=== PATIENT | female | born 1970 | race Caucasian/White ===

== ENCOUNTER 2024-07-17 09:47 | Emergency (ER) | payer OTHER, SELFPAY ==
[2024-07-17 10:00] VITALS: BP 122/85; PULSE 96; RESP 20; TEMP 36.5; O2SAT 99
--- NOTE | 2024-07-17 10:07 | ED_ITS ---
HPI - Dental/Oral General Chief complaint: Dental/Oral Stated complaint: right side of face swollen/hurts Time Seen by Provider: 07/17/24 09:52 Source: patient Mode of arrival: ambulatory Limitations: no limitations History of Present Illness HPI Narrative: Birdie is a 54-year-old female patient presenting to the clinic today with complaints of right lower jaw swelling since last night. She woke up this morning and it was more swollen and painful. Denies any fevers, chills, or body aches. Allergies to penicillin and erythromycin. Denies any chest pain or shortness of breath. Related Data Home Medications ?Medication ?Instructions ?Recorded ?Confirmed ?Last Taken ?Type benztropine 1 mg tablet mg 07/17/24 Unknown History benztropine 2 mg tablet mg 07/17/24 Unknown History gabapentin 600 mg tablet mg 07/17/24 Unknown History hydroxyzine HCl 50 mg tablet mg 07/17/24 Unknown History mirtazapine 45 mg tablet mg 07/17/24 Unknown History paliperidone palmitate 234 mg/1.5 mg IM 07/17/24 Unknown History mL intramuscular syringe (Invega Sustenna) prazosin 5 mg capsule mg 07/17/24 Unknown History quetiapine 300 mg tablet mg 07/17/24 Unknown History ropinirole 3 mg tablet mg 07/17/24 Unknown History sertraline 100 mg tablet mg 07/17/24 Unknown History Allergies Allergy/AdvReac Type Severity Reaction Status Date / Time erythromycin base Allergy Intermediate hives Verified 07/17/24 10:06 Penicillins Allergy Intermediate rash Verified 07/17/24 10:06 Review of Systems Review of Systems: Pertinent positives per HPI. Patient denies any fever, chills, rash, headache, visual changes, dizziness, cough, shortness of breath, chest pain, palpitations, nausea, vomiting, diarrhea, constipation, abdominal pain, or any urinary issues. PMFSH Comments At the time of my signature, I reviewed and agree with the nursing past medical, surgical, social, and family history. There is no relevant family history pertinent to the patient complaint. Exam Narrative: General: Well-developed, well nourished, in no apparent distress Head: Normocephalic, atraumatic Eyes: Pupils equally round and reactive to light bilaterally, EOM intact, sclera and conjunctive clear, no discharge, lids normal Ears: TMs intact and clear, ear canals clear, no drainage, grossly hearing normal. Nose: Nares patent, no discharge, no inflammation, no sinus tenderness. Mouth: Oral pharynx without lesions or masses, very poor dentition, MMM. Dental abscess to the right lower 1st molar Neck: Supple, trachea midline, no enlargement of anterior or posterior cervical nodes, no thyroid masses or goiter palpable. Cardio: Regular rate and rhythm, s1 and s2 normal, no murmur appreciated. Resp: Clear to auscultation bilaterally, no rhonchi, rales, wheezing or rubs Course Course Emergency Course: Portions of this record may have been created with voice recognition software. Level of Care: Express Care Visit Vital Signs Vital signs: Vital Signs Temperature 36.5 C 07/17/24 10:00 Pulse Rate 96 07/17/24 10:00 Respiratory Rate 20 07/17/24 10:00 Blood Pressure 122/85 07/17/24 10:00 Pulse Oximetry 99 07/17/24 10:00 Oxygen Delivery Room Air 07/17/24 10:00 Temperature 36.5 C 07/17/24 10:00 Pulse Rate 96 07/17/24 10:00 Respiratory Rate 20 07/17/24 10:00 Blood Pressure 122/85 07/17/24 10:00 Pulse Oximetry 99 07/17/24 10:00 Oxygen Delivery Room Air 07/17/24 10:00 Vital signs reviewed MDM - Dental/Oral MDM Narrative Medical decision making narrative: At the time of visit patient is resting comfortably on the exam table. Patient appears to be nontoxic. Plan: I suspect patient has a right lower dental abscess. Abscess currently is not fluctuant. Patient is not having any fever, chills, body aches. Is able to swallow without difficulty. Patient is out allergic to erythromycin and penicillin that both cause her rash/hives. Reviewed up-to-date options for dental abscess and recommends Levaquin and metronidazole. Supportive measures were discussed with the patient and they voiced understanding discharge instructions and agrees to treatment plan. Return precautions reviewed Differential Diagnosis Differential diagnosis: Likely gingival abscess, dental caries, toothache, dental abscess, fracture of tooth and aphthous ulcer Discharge Plan Discharge Clinical Impression: Dental abscess Patient Disposition: Home Condition: Stable Instructions: Antibiotic Form, Dental Abscess (ED) Additional Instructions: Increase fluids and stay well hydrated May take Tylenol/Motrin as needed for pain or fever Take Levaquin and metronidazole as prescribed May take probiotic daily-2 hours before 2 hours after taking antibiotic If area becomes more swollen and fluctuant recommend incision and drainage Follow-up with dentist as soon as possible Patient Language: Russian Prescriptions: New levofloxacin 750 mg tablet 750 mg PO DAILY 10 Days Qty: 10 0RF metronidazole 500 mg tablet 500 mg PO Q8H 10 Days Qty: 30 0RF ibuprofen 800 mg tablet 800 mg PO TID PRN (Reason: pain) 10 Days Qty: 30 0RF No Action gabapentin 600 mg tablet quetiapine 300 mg tablet ropinirole 3 mg tablet sertraline 100 mg tablet hydroxyzine HCl 50 mg tablet prazosin 5 mg capsule benztropine 1 mg tablet benztropine 2 mg tablet mirtazapine 45 mg tablet Invega Sustenna 234 mg/1.5 mL syringe IM Follow-up/Referrals: UNKNOWN,DOCTOR [Primary Care Provider] - Time of Disposition: 10:07 Quality NIHSS Nursing Documentation ED NIHSS nursing documentation: reviewed/agree
== END 2024-07-17 10:15 | disposition home or self-care (01) ==
PROVIDERS: Emergency Provider Nurse Practitioner Family
DX: K04.7 Periapical abscess without sinus (principal); Z79.899 Other long term (current) drug therapy
CPT/HCPCS: 99213; G0463